=== PATIENT | male | born 1965 | race Asian ===

== ENCOUNTER 2017-11-04 11:56 | Emergency (ER) | payer OTHER ==
[2017-11-04 12:39] LABS: Basophils % (Auto) 0.2 % (0.0-1.8); Eosinophils # (Auto) 0.1 K/mm3 (0.0-0.4); Eosinophils % (Auto) 0.7 % (0.0-4.3); Hematocrit 44.7 % (35.5-45.6); Hemoglobin 14.6 gm/dl (11.8-15.2); Lymphocytes # (Auto) 1.5 K/mm3 (1.2-5.4); Lymphocytes % (Auto) 13.7 % (13.4-35.0); Mean Corpuscular HGB Conc 33 % (32-34); Mean Corpuscular Hemoglobin 31 pg (28-32); Mean Corpuscular Volume 94 fl (84-94); Monocytes # (Auto) 0.6 K/mm3 (0.0-0.8); Monocytes % (Auto) 5.3 % (0.0-7.3); Platelet Count 265 K/mm3 (140-440); Red Blood Count 4.78 M/mm3 (3.65-5.03); Red Cell Distribution Width 13.1 % (13.2-15.2)
[2017-11-04 12:59] LABS: Alanine Aminotransferase 27 units/L (7-56); Albumin 4.2 g/dL (3.9-5); BUN/Creatinine Ratio 24; Blood Urea Nitrogen 17 mg/dL (9-20); Calcium 8.9 mg/dL (8.4-10.2); Hemolysis Index 11
[2017-11-04 16:18] LABS: Bilirubin,Urine NEG (Negative); Blood,Urine NEG (Negative); Color,Urine Yellow (Yellow); Nitrite,Urine NEG (Negative); Protein,Urine <15 mg/dL mg/dL (Negative); Urobilinogen,Urine < 2.0 mg/dL (<2.0); WBC,Urine < 1.0 /HPF (0.0-6.0)
[2017-11-04] MEDS ORDERED: ZOFRAN IV ONE ×2 (17:56→19:20)
[2017-11-04] MEDS ORDERED: MORPHINE IV ONE ×2 (17:56→19:19)
[2017-11-04] MEDS ORDERED: MORPHINE IM ONE (19:21)
[2017-11-04] MEDS ORDERED: ZOFRAN IM ONE (19:22)
[2017-11-04] MEDS ORDERED: ZOFRAN ODT PO ONE (20:07)
[2017-11-04] MEDS ORDERED: CATAPRES PO ONE (21:01)
--- NOTE | 2017-11-04 21:05 | Emergency Department Report ---
HPI - General Chief Complaint: Abdominal Pain Time Seen by Provider: 11/04/17 17:20 - HPI HPI: The patient is a 52-year-old male presents for evaluation of abdominal pain. The patient reports epigastric abdominal pain since 10:30 AM this morning, 6 hours prior to my evaluation, constant, cramping in quality, exacerbated with retching. He also has experienced associated nausea without vomiting and loose watery stools. The patient denies fever, chills, night sweats, chest pain, dyspnea, hematemesis, syncope, blood in the stool, dark tarry stool, dysuria, hematuria, flank pain, genital discharge. ED Past Medical Hx - Social History Smoking Status: Never Smoker Substance Use Type: None - Medications Home Medications: Home Medications Medication Instructions Recorded Confirmed Last Taken Type HYDROcodone/APAP 5-325 [[place] 1 each PO Q6HR PRN #20 tablet 11/04/17 Unknown Rx 5/325] Ondansetron [Zofran Odt] 4 mg PO Q8HR #20 tab.rapdis 11/04/17 Unknown Rx Pantoprazole [Protonix] 40 mg PO QDAY #20 tablet 11/04/17 Unknown Rx metFORMIN [Glucophage] 500 mg PO QDAY #30 tab 11/04/17 Unknown Rx ED Review of Systems ROS: Stated complaint: ABDOMINAL PAIN Other details as noted in HPI Constitutional: denies: fever ENT: denies: throat or neck pain Respiratory: denies: cough, shortness of breath Cardiovascular: denies: chest pain Endocrine: denies unexplained weight loss or gain Gastrointestinal: reports abdominal pain, nausea, diarrhea Genitourinary: denies: dysuria Musculoskeletal: denies: leg swelling Skin: denies: rash Neurological: denies: headache Hematological/Lymphatic: denies: easy bleeding or easy bruising Psych: denies sadness or hopelessness Physical Exam - Physical Exam Vital Signs: Vital Signs 11/04/17 11:59 Temperature 98.1 F Pulse Rate 79 Respiratory 22 Rate Blood Pressure 143/110 O2 Sat by Pulse 98 Oximetry Physical Exam: General: well-nourished, well-developed, no acute distress Head: Normocephalic, atraumatic Eyes: normal sclera ENT: Mucous membranes are pale and dry Neck: No neck stiffness, no cervical adenopathy Respiratory: Breath sounds equal bilaterally, no wheezing, rales, or rhonchi Cardio: S1 and S2 present, no murmurs, rubs, gallops, capillary refill is delayed Abdomen: Normoactive bowel sounds, soft abdomen, epigastric tenderness to palpation present, no rigidity, no guarding or rebound tenderness, no pain at McBurney's point, Liu sign negative Musc: No pitting edema Skin: No rash Neuro: no facial drooping, normal speech Psych: Normal affect ED Course Vital Signs 11/04/17 11:59 Temperature 98.1 F Pulse Rate 79 Respiratory 22 Rate Blood Pressure 143/110 O2 Sat by Pulse 98 Oximetry ED Medical Decision Making - Lab Data Result diagrams: 11/04/17 12:35 11/04/17 12:35 - Medical Decision Making The patient was seen and examined by myself. The patient is placed on a nurse monitoring and continuous pulse ox. On initial evaluation, the patient was found to be in no distress. Evaluation orders are placed. The patient is given IM morphine and a GI cocktail for his pain. Lab results exhibited WBC of 11, elevated glucose greater than 300, and elevated urine specific gravity, and otherwise labs were reassuring including normal hemoglobin, hematocrit, renal function, LFTs, lipase, bicarbonate, and anion gap. As the patient has no history of elevated glucose levels, findings are concerning for new diagnosis of diabetes type 2. The patient was reevaluated and reported that their symptoms were markedly improved. On reexamination the patient has no tenderness in the abdomen remained soft without guarding, rigidity, or rebound tenderness, nonacute abdomen. Evaluation findings are suggestive of gastritis versus ulcer versus gastroparesis. The patient is stable for discharge with outpatient follow-up. The patient is given follow-up and return instructions. The patient expressed understanding and agreed with the plan. The patient is discharged in stable condition. Critical care attestation.: If time is entered above; I have spent that time in minutes in the direct care of this critically ill patient, excluding procedure time. ED Disposition Clinical Impression: Acute hyperglycemia, Hypertensive urgency, Abdominal pain, acute, epigastric, Diabetes mellitus type 2 in nonobese, Dehydration Disposition: -01 TO HOME OR SELFCARE Is pt being admited?: No Does the pt Need Aspirin: No Condition: Stable Instructions: Diabetes Mellitus Type 2 in Adults (ED), Hypertension (ED), Abdominal Pain (ED), Peptic Ulcer (ED), Gastritis (ED), Diet for Ulcers and Gastritis (ED), Acute Nausea and Vomiting (ED) Prescriptions: HYDROcodone/APAP 5-325 [[place] 5/325] 1 each PO Q6HR PRN #20 tablet PRN Reason: Pain metFORMIN [Glucophage] 500 mg PO QDAY #30 tab Ondansetron [Zofran Odt] 4 mg PO Q8HR #20 tab.rapdis Pantoprazole [Protonix] 40 mg PO QDAY #20 tablet Referrals: PRIMARY MD RALPH [Primary Care Provider] - 3-5 Days [facility] [Provider Group] - 3-5 Days VASHTI CHRISTIE MD [Staff Physician] - 3-5 Days Forms: Work/School Release Form(ED) Time of Disposition: 21:05
[2017-11-04] MEDS ORDERED: PEPCID PO ONE (22:12)
[2017-11-04] MEDS ORDERED: LIDOCAINE VISCOUS 2% PO ONE (22:12)
[2017-11-04] MEDS ORDERED: ALUM-MAG HYDROX-SIMETH 200-200-20MG/5ML PO ONE (22:12)
[2017-11-04 22:34] VITALS: BP 134/87
== END 2017-11-04 22:40 | disposition home or self-care (01) ==
LOC: ED 11:56
DX: I16.0 Hypertensive urgency (principal); E11.65 Type 2 diabetes mellitus with hyperglycemia; E86.0 Dehydration
CPT/HCPCS: 36415; 80053; 81001; 82962; 83690; 85025; 99284; J2270; J2405; J1815; Q0162

== ENCOUNTER 2018-05-12 18:09 | Emergency (ER) | payer OTHER ==
[2018-05-12 19:20] LABS: Hematocrit 42.4 % (35.5-45.6); Hemoglobin 14.8 gm/dl (11.8-15.2); Mean Corpuscular HGB Conc 35 % (32-34); Mean Corpuscular Hemoglobin 32 pg (28-32); Mean Corpuscular Volume 92 fl (84-94); Platelet Count 236 K/mm3 (140-440); Red Blood Count 4.64 M/mm3 (3.65-5.03)
[2018-05-12 19:33] LABS: BUN/Creatinine Ratio 16; Blood Urea Nitrogen 11 mg/dL (9-20); Calcium 9.1 mg/dL (8.4-10.2); Hemolysis Index 2
--- NOTE | 2018-05-12 19:41 | Emergency Department Report ---
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 Patient felt weak and dizzy and almost passed out. He fell forward but was able to catch himself. Patient has a history of tid-qfsnvbw-[id number] diabetes and thought that his sugar may have been low so he drinks some Coca-Cola. Blood sugar in triage was 108. He denies hitting his head or any loss of consciousness. He denies any fever, chest pain, shortness of breath, blurry vision, slurred speech or any other neurological deficits. He has a primary care physician in [place], Dr. Baker. No Recent travel or sick contacts at home. ED Past Medical Hx - Past Medical History Hx Diabetes: Yes Additional medical history: glaucoma - Surgical History Past Surgical History?: No - Social History Smoking Status: Never Smoker Substance Use Type: None - Medications Home Medications: Home Medications Medication Instructions Recorded Confirmed Last Taken Type HYDROcodone/APAP 5-325 [[place] 1 each PO Q6HR PRN #20 tablet 11/04/17 Unknown Rx 5/325] Ondansetron [Zofran Odt] 4 mg PO Q8HR #20 tab.rapdis 11/04/17 Unknown Rx Pantoprazole [Protonix] 40 mg PO QDAY #20 tablet 11/04/17 Unknown Rx metFORMIN [Glucophage] 500 mg PO QDAY #30 tab 11/04/17 Unknown Rx ED Review of Systems ROS: Stated complaint: FELL/SUGAR LOW Other details as noted in HPI Comment: All other systems reviewed and negative Constitutional: denies: chills, fever Eyes: denies: eye pain, eye discharge, vision change ENT: denies: ear pain, throat pain Respiratory: denies: cough, shortness of breath, wheezing Gastrointestinal: denies: abdominal pain, nausea, diarrhea Genitourinary: denies: urgency, dysuria Musculoskeletal: denies: back pain, joint swelling, arthralgia Skin: denies: rash, lesions Neurological: other (dizziness, near syncope) Physical Exam - Physical Exam Vital Signs: Vital Signs 05/12/18 05/12/18 18:29 19:16 Temperature 98.1 F Pulse Rate 69 71 Respiratory 16 10 L Rate Blood Pressure 133/89 161/99 O2 Sat by Pulse 97 100 Oximetry Physical Exam: GENERAL: The patient is well-developed well-nourished. HENT: Normocephalic. Atraumatic. Patient has moist mucous membranes. EYES: Extraocular motions are intact. Pupils equal reactive to light bilaterally. No nystagmus. NECK: Supple. Trachea is midline. CHEST/LUNGS: Clear to auscultation. There is no respiratory distress noted. HEART/CARDIOVASCULAR: Regular. There is no tachycardia. There is no murmur. ABDOMEN: Abdomen is soft, nontender. Patient has normal bowel sounds. There is no abdominal distention. SKIN: Skin is warm and dry. NEURO: The patient is awake, alert, and oriented. The patient is cooperative. The patient has no focal neurologic deficits. The patient has normal speech and gait. Cranial nerves II through XII grossly intact. No pronator drift. No dysmetria. MUSCULOSKELETAL: There is no tenderness or deformity. There is no limitation range of motion. There is no evidence of acute injury. ED Course Vital Signs 05/12/18 05/12/18 18:29 19:16 Temperature 98.1 F Pulse Rate 69 71 Respiratory 16 10 L Rate Blood Pressure 133/89 161/99 O2 Sat by Pulse 97 100 Oximetry ED Medical Decision Making - Lab Data Result diagrams: 05/12/18 18:47 05/12/18 18:47 - EKG Data -: EKG Interpreted by Ma EKG shows normal: sinus rhythm, axis, intervals, QRS complexes, ST-T waves Rate: normal - EKG Data When compared to previous EKG there are: previous EKG unavailable Interpretation: normal EKG - Medical Decision Making Patient presents with some nonspecific dizziness and/or generalized weakness and a near syncopal episode while working 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 On physical exam the patient has no focal, motor or sensory deficits and his cranial nerves are intact. Heart and lung sounds are normal auscultation. EKG does not show any signs of ST elevation [place] or dysrhythmia. His labs have been unremarkable including no signs of infection, no electrolyte abnormalities, normal blood sugar in this diabetic patient, normal thyroid function and a negative troponin. His vital signs were stable throughout his ED course including being afebrile. He does have some level of elevated blood pressure readings and possibly some possible orthostatics as his blood pressure went up as he went from laying, sitting and then standing. However he was mandatory throughout the emergency department and did not have any feelings of instability. It is possible that the patient did have some low blood sugar as his Accu-Chek in triage was about 100 after the patient drank some soda. His was eventually bedside and says that he is on 2 different blood sugar medications but sometimes will skip lunch or skip meals. Since the patient is awake and alert without any deficits, and has no complaint of any headache, I did not feel that CT imaging of the head was necessary at this time. We discussed eating a normal amount of meals but continuing his diabetes medications. He has been instructed to follow-up with the primary care physician in the next few days but to return to the emergency Department with any worsening of symptoms or any acute distress. He understands and agrees to plan. - Differential Diagnosis dysrhythmia, TIA, hypoglycemia, vasovagal, orthostatic hypotension Critical Care Time: No Critical care attestation.: If time is entered above; I have spent that time in minutes in the direct care of this critically ill patient, excluding procedure time. ED Disposition Clinical Impression: Dizziness, Near syncope, Elevated blood pressure reading Disposition: DC-01 TO HOME OR SELFCARE Is pt being admited?: No Condition: Stable Instructions: Near Syncope (ED), Lightheadedness (ED), Dizziness (ED) Additional Instructions: Please follow-up with your primary care physician in the next few days. Return to the emergency Department with any worsening of your symptoms or any acute distress. Try and stay away from foods that are high in salt and caffeinated products to help with your blood pressure. Keep a blood pressure log. Continue taking her diabetes medications. However you need to make sure that you do not skip meals or else you may end up with low blood sugar. Referrals: PRIMARY CARE, [Referring] - [facility] Time of Disposition: 20:47
[2018-05-12 21:05] VITALS: BP 146/92
== END 2018-05-12 21:08 | disposition home or self-care (01) ==
LOC: ED 18:09
DX: E11.65 Type 2 diabetes mellitus with hyperglycemia (principal)
CPT/HCPCS: 36415; 80048; 84443; 84484; 85027; 93005; 93010; 99283

== ENCOUNTER 2019-02-04 14:24 | Emergency (ER) | payer OTHER ==
[2019-02-04 15:16] VITALS: BP 142/87
--- NOTE | 2019-02-04 15:19 | Emergency Department Report ---
Blank Doc - Documentation Documentation: 53 y o male presents to ed for itching and swelling and pain on bilat hands x today states he used a detergent at work and sx started shortly after that. no airway compromise acc eval
--- NOTE | 2019-02-04 15:53 | Emergency Department Report ---
ED General Adult HPI - General Chief complaint: Allergic Reaction Stated complaint: CHEMICAL REACTION Time Seen by Provider: 02/04/19 15:14 Source: patient Mode of arrival: Ambulatory Limitations: No Limitations - History of Present Illness Initial comments: Patient is a 53-year-old mellitus emergency with complaints of spelled chemical on his hands at work. Patient is complaining of burning sensation to his rt hand and itching. Patient states it happened this morning at work and he immediately washed his hands thoroughly. Patient brought the chemical with him. 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 Chemical recommendation on the back of the doctor recommended, skin exposure takes place only requires thorough cleaning. She is complaining of redness to his right hand. -: Sudden Location: upper extremity Radiation: non-radiation Severity scale (0 -10): 4 Quality: burning Consistency: constant Improves with: cold therapy, rest, other (putting hand in cold water) Worsens with: movement Associated Symptoms: denies: confusion, chest pain, cough, diaphoresis, fever/chills, headaches, loss of appetite, malaise, nausea/vomiting, rash, seizure, shortness of breath, syncope, weakness Treatments Prior to Arrival: none - Related Data Previous Rx's Medication Instructions Recorded Last Taken Type HYDROcodone/APAP 5-325 [[place] 1 each PO Q6HR PRN #20 tablet 11/04/17 Unknown Rx 5/325] Ondansetron [Zofran Odt] 4 mg PO Q8HR #20 tab.rapdis 11/04/17 Unknown Rx Pantoprazole [Protonix] 40 mg PO QDAY #20 tablet 11/04/17 Unknown Rx metFORMIN [Glucophage] 500 mg PO QDAY #30 tab 11/04/17 Unknown Rx methylPREDNISolone [Medrol] 4 mg PO DAILY 6 Days #1 tab.ds.pk 02/04/19 Unknown Rx Allergies Allergy/AdvReac Type Severity Reaction Status Date / Time No Known Allergies Allergy Verified 02/04/19 14:35 ED Review of Systems ROS: Stated complaint: CHEMICAL REACTION Other details as noted in HPI ED Past Medical Hx - Past Medical History Previous Medical History?: Yes Hx Diabetes: Yes Additional medical history: glaucoma - Surgical History Past Surgical History?: No - Social History Smoking Status: Never Smoker Substance Use Type: None - Medications Home Medications: Home Medications Medication Instructions Recorded Confirmed Last Taken Type HYDROcodone/APAP 5-325 [[place] 1 each PO Q6HR PRN #20 tablet 11/04/17 Unknown Rx 5/325] Ondansetron [Zofran Odt] 4 mg PO Q8HR #20 tab.rapdis 11/04/17 Unknown Rx Pantoprazole [Protonix] 40 mg PO QDAY #20 tablet 11/04/17 Unknown Rx metFORMIN [Glucophage] 500 mg PO QDAY #30 tab 11/04/17 Unknown Rx methylPREDNISolone [Medrol] 4 mg PO DAILY 6 Days #1 tab.ds.pk 02/04/19 Unknown Rx ED Physical Exam - General Limitations: No Limitations General appearance: alert, in no apparent distress - Head Head exam: Present: atraumatic, normocephalic - Eye Eye exam: Present: normal appearance - ENT ENT exam: Present: mucous membranes moist - Neck Neck exam: Present: normal inspection - Respiratory Respiratory exam: Present: normal lung sounds bilaterally. Absent: respiratory distress - Cardiovascular Cardiovascular Exam: Present: regular rate, normal rhythm. Absent: systolic murmur, diastolic murmur, rubs, gallop - GI/Abdominal GI/Abdominal exam: Present: soft, normal bowel sounds - Rectal Rectal exam: Present: deferred - Extremities Exam Extremities exam: Present: normal inspection - Back Exam Back exam: Present: normal inspection - Neurological Exam Neurological exam: Present: alert, oriented X3 - Psychiatric Psychiatric exam: Present: normal affect, normal mood - Skin Skin exam: Present: warm, dry, intact, normal color (except for right hand), erythema (2 right hand. No rash noted. No urticaria noted.), other (right hand exam: Redness noted to the palmar aspect of the hand. No rash noted. No bustillo noted. No skin breakdown noted. Mild contact dermatitis noted). Absent: rash, urticaria, vesicles ED Course Vital Signs 02/04/19 15:14 Temperature 98.1 F Pulse Rate 67 Respiratory 16 Rate Blood Pressure 142/87 O2 Sat by Pulse 99 Oximetry ED Medical Decision Making - Medical Decision Making Patient is a 53-year-old male up since emergency room with complaints of a chemical burn to his right hand. Findings consistent with contact dermatitis. Product label reviewed. Product label recommends thorough cleaning of the skin when skin contact occurs. Patient will be discharged home. Patient stable for discharge. Patient was given one day off work to rest. Patient will be given a Medrol Dosepak. Patient given discharge instructions. Patient given medicat ion instructions. Patient voiced understanding of discharge instructions. - Differential Diagnosis hand pain. Hand itching. Contact dermatitis. Chemical burn Critical care attestation.: If time is entered above; I have spent that time in minutes in the direct care of this critically ill patient, excluding procedure time. ED Disposition Clinical Impression: Contact dermatitis Qualifiers: Contact dermatitis type: irritant Contact dermatitis trigger: detergents Qualified Code(s): L24.0 - Irritant contact dermatitis due to detergents Disposition: DC-01 TO HOME OR SELFCARE Is pt being admited?: No Does the pt Need Aspirin: No Condition: Stable Instructions: Contact Dermatitis (ED) Additional Instructions: Patient to follow up with primary care in 2-3 days. Patient take one day off work. Patient to take meds as directed. Patient to increase water. Patient to rest. Patient to keep hand clean and dry Prescriptions: methylPREDNISolone [Medrol] 4 mg PO DAILY 6 Days #1 tab.ds.pk Time of Disposition: 15:55
[2019-02-04] MEDS ORDERED: SOLU-Medrol IM ONE (15:56)
== END 2019-02-04 16:18 | disposition home or self-care (01) ==
LOC: ED 14:24
DX: L24.0 Irritant contact dermatitis due to detergents (principal); E11.9 Type 2 diabetes mellitus without complications
CPT/HCPCS: 96372; 99282; J2930

== ENCOUNTER 2021-04-16 17:25 | Emergency (ER) | payer OTHER ==
[2021-04-16 19:57] VITALS: BP 165/93
[2021-04-16 20:49] LABS: Basophils % (Auto) 0.4 % (0.0-1.8); Eosinophils % (Auto) 0.6 % (0.0-4.3); Hematocrit 43.5 % (35.5-45.6); Hemoglobin 14.8 gm/dl (11.8-15.2); Lymphocytes # (Auto) 2.9 K/mm3 (1.2-5.4); Lymphocytes % (Auto) 35.7 % (13.4-35.0); Mean Corpuscular HGB Conc 34 % (32-34); Mean Corpuscular Volume 94 fl (84-94); Monocytes # (Auto) 0.7 K/mm3 (0.0-0.8); Monocytes % (Auto) 8.5 % (0.0-7.3); Platelet Count 293 K/mm3 (140-440); Red Blood Count 4.64 M/mm3 (3.65-5.03); Red Cell Distribution Width 14.2 % (13.2-15.2)
[2021-04-16 21:11] LABS: Alanine Aminotransferase 36 units/L (7-56); Albumin 4.2 g/dL (3.9-5); Blood Urea Nitrogen 11 mg/dL (9-20); Calcium 9.4 mg/dL (8.4-10.2); Hemolysis Index 9
[2021-04-16 21:12] LABS: BUN/Creatinine Ratio 16
--- NOTE | 2021-04-16 21:42 | Emergency Department Report ---
ED General Adult HPI - General Chief complaint: Sore Throat Stated complaint: THROAT IRRIATION Time Seen by Provider: 04/16/21 20:28 Source: patient, family Mode of arrival: Ambulatory Limitations: No Limitations - History of Present Illness Initial comments: Patient is a 55-year-old male who presents emergency room with complaints of difficulty swallowing pills and solids for approximately a week. He states that he went to his primary care doctor and was prescribed nystatin. He states he continues to have throat discomfort and states that his throat feels dry. He states he also has white stuff on his tongue. He states in order to take his medication he has to empty the capsule because he has difficulty swallowing the pill. He states he is able to swallow liquids without difficulty. He denies any vomiting, regurgitation, hemoptysis. He has not seen a GI doctor or had endoscopy. Past medical history of diabetes and glaucoma. No allergies to medications. - Related Data Previous Rx's Medication Instructions Recorded Last Taken Type HYDROcodone/APAP 5-325 [[place] 1 each PO Q6HR PRN #20 tablet 11/04/17 Unknown Rx 5/325] Ondansetron [Zofran Odt] 4 mg PO Q8HR #20 tab.rapdis 11/04/17 Unknown Rx Pantoprazole [Protonix] 40 mg PO QDAY #20 tablet 11/04/17 Unknown Rx metFORMIN [Glucophage] 500 mg PO QDAY #30 tab 11/04/17 Unknown Rx methylPREDNISolone [Medrol] 4 mg PO DAILY 6 Days #1 tab.ds.pk 02/04/19 Unknown Rx Clotrimazole [Mycelex] 10 mg MM 5XD 7 Days #35 jasper 04/16/21 Unknown Rx Lidocaine Viscous 2% 15 ml MM TID PRN #1 bottle 04/16/21 Unknown Rx Allergies Allergy/AdvReac Type Severity Reaction Status Date / Time No Known Allergies Allergy Verified 02/04/19 14:35 ED Review of Systems ROS: Stated complaint: THROAT IRRIATION Other details as noted in HPI Comment: All other systems reviewed and negative ED Past Medical Hx - Past Medical History Previous Medical History?: Yes Hx Diabetes: Yes Additional medical history: glaucoma - Surgical History Past Surgical History?: No - Social History Smoking Status: Never Smoker Substance Use Type: None - Medications Home Medications: Home Medications Medication Instructions Recorded Confirmed Last Taken Type HYDROcodone/APAP 5-325 [[place] 1 each PO Q6HR PRN #20 tablet 11/04/17 Unknown Rx 5/325] Ondansetron [Zofran Odt] 4 mg PO Q8HR #20 tab.rapdis 11/04/17 Unknown Rx Pantoprazole [Protonix] 40 mg PO QDAY #20 tablet 11/04/17 Unknown Rx metFORMIN [Glucophage] 500 mg PO QDAY #30 tab 11/04/17 Unknown Rx methylPREDNISolone [Medrol] 4 mg PO DAILY 6 Days #1 tab.ds.pk 02/04/19 Unknown Rx Clotrimazole [Mycelex] 10 mg MM 5XD 7 Days #35 jasper 04/16/21 Unknown Rx Lidocaine Viscous 2% 15 ml MM TID PRN #1 bottle 04/16/21 Unknown Rx ED Physical Exam - General Limitations: No Limitations General appearance: alert, in no apparent distress - Head Head exam: Present: atraumatic, normocephalic - ENT ENT exam: Present: mucous membranes moist, other (White plaque present to the tongue) - Neck Neck exam: Present: normal inspection, full ROM. Absent: tenderness, meningismus, lymphadenopathy, thyromegaly - Respiratory Respiratory exam: Present: normal lung sounds bilaterally. Absent: respiratory distress, wheezes, rales, rhonchi, stridor, chest wall tenderness, accessory muscle use, decreased breath sounds, prolonged expiratory - Cardiovascular Cardiovascular Exam: Present: regular rate, normal rhythm, normal heart sounds. Absent: systolic murmur, diastolic murmur, rubs, gallop - Neurological Exam Neurological exam: Present: alert, oriented X3 - Psychiatric Psychiatric exam: Present: normal affect, normal mood - Skin Skin exam: Present: warm, dry, intact ED Course Vital Signs 04/16/21 19:53 Temperature 97.8 F Pulse Rate 71 Respiratory 18 Rate Blood Pressure 165/93 O2 Sat by Pulse 98 Oximetry ED Medical Decision Making - Lab Data Result diagrams: 04/16/21 20:37 04/16/21 20:37 Lab Results 04/16/21 04/16/21 04/16/21 Range/Units 20:37 20:37 20:37 WBC 8.2 (4.5-11.0) K/mm3 RBC 4.64 (3.65-5.03) M/mm3 Hgb 14.8 (11.8-15.2) gm/dl Hct 43.5 (35.5-45.6) % MCV 94 (84-94) fl MCH 32 (28-32) pg MCHC 34 (32-34) % RDW 14.2 (13.2-15.2) % Plt Count 293 (140-440) K/mm3 Lymph % (Auto) 35.7 H (13.4-35.0) % [place] % (Auto) 8.5 H (0.0-7.3) % Eos % (Auto) 0.6 (0.0-4.3) % Baso % (Auto) 0.4 (0.0-1.8) % Lymph # (Auto) 2.9 (1.2-5.4) K/mm3 [place] # (Auto) 0.7 (0.0-0.8) K/mm3 Eos # (Auto) 0.0 (0.0-0.4) K/mm3 Baso # (Auto) 0.0 (0.0-0.1) K/mm3 Seg Neutrophils % 54.8 (40.0-70.0) % Seg Neutrophils # 4.5 (1.8-7.7) K/mm3 Sodium 134 L (137-145) mmol/L Potassium 4.6 (3.6-5.0) mmol/L Chloride 99.3 (98-107) mmol/L Carbon Dioxide 25 (22-30) mmol/L Anion Gap 14 mmol/L BUN 11 (9-20) mg/dL Creatinine 0.7 L (0.8-1.3) mg/dL Estimated GFR > 60 ml/min BUN/Creatinine Ratio 16 % Glucose 220 H (75-100) mg/dL Calcium 9.4 (8.4-10.2) mg/dL Total Bilirubin 1.60 H (0.1-1.2) mg/dL AST 19 (5-40) units/L ALT 36 (7-56) units/L Alkaline Phosphatase 106 (35-129) units/L Total Protein 6.9 (6.3-8.2) g/dL Albumin 4.2 (3.9-5) g/dL Albumin/Globulin Ratio 1.6 % TSH 0.863 (0.270-4.200) mlU/mL - Radiology Data Radiology results: report reviewed Ordering Physician: MARNIE ESCOBAR Date of Service: 04/16/21 Procedure(s): CT neck w con Accession Number(s): [id number] cc: MARNIE ESCOBAR . CT neck w con INDICATION / CLINICAL INFORMATION: 55 years Male; Dysphagia, Difficulty swallowing.. TECHNIQUE: Contiguous thin cut axial images obtained through the neck following IV contrast. Sagittal and coronal reconstructions performed by the technologist. All CT scans at this location are performed using CT dose reduction for ALARA by means of automated exposure control. COMPARISON: None available. FINDINGS: MUCOSAL SPACE: The nasopharynx, oropharynx and vallecula, oral cavity and floor of mouth, hypopharynx, and larynx are grossly normal. Parapharyngeal and retropharyngeal spaces are grossly normal. LYMPH NODES: No significant adenopathy appreciated. SALIVARY GLANDS: Parotid, submandibular, and visualized sublingual glands are within normal limits. THYROID GLAND: Unremarkable. PARANASAL SINUSES: Mild mucosal thickening in the ethmoids and maxillary antra. SPINE: No significant abnormality of the cervical spine appreciated. VASCULAR STRUCTURES: Vascular structures are grossly normal in appearance. ADDITIONAL FINDINGS: Surrounding soft tissues are otherwise grossly normal. IMPRESSION: 1. No definitive cause for patient's symptomatology appreciated. Signer Name: Malcolm Murphy MD, III Signed: 04/16/2021 10:24 PM Workstation Name: [id number] Transcribed By: Dictated By: Malcolm Murphy MD Electronically Authenticated By: Malcolm Murphy MD Signed Date/Time: 04/16/212223 DD/ 20 TD/TT: Print Cancel - Medical Decision Making Patient is a 55-year-old male who presents emergency room with complaints of difficulty swallowing pills and solids for approximately a week. He states that he went to his primary care doctor and was prescribed nystatin. He states he continues to have throat discomfort and states that his throat feels dry. He states he also has white stuff on his tongue. He states in order to take his medication he has to empty the capsule because he has difficulty swallowing the pill. He states he is able to swallow liquids without difficulty. He denies any vomiting, regurgitation, hemoptysis. He has not seen a GI doctor or had endoscopy. Past medical history of diabetes and glaucoma. No allergies to medications. Vitals are stable. Labs are stable. CT neck with contrast 1. No definitive cause for patient's symptomatology appreciated. Patient is able to tolerate his secretions and liquids that any difficulty. He states he mostly has difficulty with swallowing pills. Examination of the mouth/tongue shows mild thrush. Patient will be referred to GI for further evaluation. Discuss strict return precautions with patient. Patient given prescription for medications. Advised patientPlease use medication as prescribed. Follow-up with a primary care doctor. Follow-up with a GI doctor. Return to emergency room for new or worsening symptoms. Critical care attestation.: If time is entered above; I have spent that time in minutes in the direct care of this critically ill patient, excluding procedure time. ED Disposition Clinical Impression: Dysphagia Qualifiers: Dysphagia type: unspecified Qualified Code(s): R13.10 - Dysphagia, unspecified Disposition: - TO HOME OR SELFCARE Is pt being admited?: No Does the pt Need Aspirin: No Condition: Stable Instructions: Dysphagia Additional Instructions: Please use medication as prescribed. Follow-up with a primary care doctor. Follow-up with a GI doctor. Return to emergency room for new or worsening symptoms. Prescriptions: Lidocaine Viscous 2% 15 ml MM TID PRN #1 bottle PRN Reason: sore throat Clotrimazole [Mycelex] 10 mg MM 5XD 7 Days #35 jasper Referrals: [facility] [Provider Group] - 2-3 Days PRIMARY CARE, [Primary Care Provider] - 2-3 Days Time of Disposition: 22:30 Print Language: DIVEHI
--- NOTE | 2021-04-16 22:28 | Cat Scan Report ---
. CT neck w con INDICATION / CLINICAL INFORMATION: 55 years Male; Dysphagia, Difficulty swallowing.. TECHNIQUE: Contiguous thin cut axial images obtained through the neck following IV contrast. Sagittal and alejandra l reconstructions performed by the technologist. All CT scans at this location are performed using CT dose reduction for ALARA by means of automated exposure control. COMPARISON: None available. FINDINGS: MUCOSAL SPACE: The nasopharynx, oropharynx and vallecula, oral cavity and floor of mouth, hypopharynx , and larynx are grossly normal. Parapharyngeal and retropharyngeal spaces are grossly normal. LYMPH NODES: No significant adenopathy appreciated. SALIVARY GLANDS: Parotid, submandibular, and visualized sublingual glands are within normal limits. THYROID GLAND: Unremarkable. PARANASAL SINUSES: Mild mucosal thickening in the ethmoids and maxillary antra. SPINE: No significant abnormality of the cervical spine appreciated. VASCULAR STRUCTURES: Vascular structures are grossly normal in appearance. ADDITIONAL FINDINGS: Surrounding soft tissues are otherwise grossly normal. IMPRESSION: 1. No definitive cause for patient's symptomatology appreciated. Signer Name: Malcolm Murphy MD, III Signed: 04/16/2021 10:24 PM Workstation Name: [id number]
== END 2021-04-16 22:45 | disposition home or self-care (01) ==
LOC: ED 17:25
DX: R13.10 Dysphagia, unspecified (principal); E11.9 Type 2 diabetes mellitus without complications; Z79.84 Long term (current) use of oral hypoglycemic drugs; Z79.899 Other long term (current) drug therapy
CPT/HCPCS: 36415; 70491; 80053; 84443; 85025; 99284; Q9967

== ENCOUNTER 2021-04-17 15:25 | Emergency (ER) | payer OTHER ==
[2021-04-17 16:11] VITALS: BP 141/78
--- NOTE | 2021-04-17 17:20 | Emergency Department Report ---
ED General Adult HPI - General Chief complaint: Sore Throat Stated complaint: SORE THROAT Time Seen by Provider: 04/17/21 17:00 Source: patient Mode of arrival: Ambulatory Limitations: No Limitations - History of Present Illness Initial comments: 55-year-old male presents emergency department after being seen on yesterday for sore throat where he underwent a CT scan and laboratory findings which showed no urgent or emergent reasons for his condition it is believed to be secondary to a fungal/yeast origin as he was prescribed nystatin by his primary care and I and Mycelex and lidocaine on yesterday however he has not yet filled the medications provided for him on yesterday and reports having a burning sensation to his left-sided throat after eating a cup of soup at home that was made for him by his . Reports no fever, chills, sweats, hemoptysis symptoms and hematochezia, no nausea, no vomiting, no abdominal pain, no change in voice, no no drooling. Reports having had some swelling trouble swallowing pills over the past 2 to 3 weeks and continues to be a problem today he can still consuming liquids obviously as he has been able to keep down entire cup of soup -: week(s) (2) Radiation: non-radiation Severity scale (0 -10): 5 Quality: burning Worsens with: other (Thanks this condition worsen after receiving a CT scan on yesterday) Associated Symptoms: denies other symptoms. denies: confusion, chest pain, cough, diaphoresis, fever/chills, headaches, loss of appetite, malaise, shortness of breath, syncope, weakness Treatments Prior to Arrival: none - Related Data Previous Rx's Medication Instructions Recorded Last Taken Type HYDROcodone/APAP 5-325 [[place] 1 each PO Q6HR PRN #20 tablet 11/04/17 Unknown Rx 5/325] Ondansetron [Zofran Odt] 4 mg PO Q8HR #20 tab.rapdis 11/04/17 Unknown Rx Pantoprazole [Protonix] 40 mg PO QDAY #20 tablet 11/04/17 Unknown Rx metFORMIN [Glucophage] 500 mg PO QDAY #30 tab 11/04/17 Unknown Rx methylPREDNISolone [Medrol] 4 mg PO DAILY 6 Days #1 tab.ds.pk 02/04/19 Unknown Rx Clotrimazole [Mycelex] 10 mg MM 5XD 7 Days #35 jasper 04/16/21 Unknown Rx Lidocaine Viscous 2% 15 ml MM TID PRN #1 bottle 04/16/21 Unknown Rx Sucralfate [Carafate] 1 gm PO ACHS #240 udc 04/17/21 Unknown Rx Allergies Allergy/AdvReac Type Severity Reaction Status Date / Time No Known Allergies Allergy Verified 02/04/19 14:35 ED Review of Systems ROS: Stated complaint: SORE THROAT Other details as noted in HPI Comment: All other systems reviewed and negative Constitutional: denies: chills, fever Eyes: denies: eye pain, eye discharge, vision change ENT: denies: ear pain, throat pain Respiratory: denies: cough, shortness of breath, wheezing Cardiovascular: denies: chest pain, palpitations Endocrine: no symptoms reported Gastrointestinal: denies: abdominal pain, nausea, diarrhea Genitourinary: denies: urgency, dysuria Musculoskeletal: denies: back pain, joint swelling, arthralgia Skin: denies: rash, lesions Neurological: denies: headache, weakness, paresthesias Psychiatric: denies: anxiety, depression Hematological/Lymphatic: denies: easy bleeding, easy bruising ED Past Medical Hx - Past Medical History Previous Medical History?: Yes Hx Diabetes: Yes Additional medical history: glaucoma - Surgical History Past Surgical History?: No - Social History Smoking Status: Never Smoker Substance Use Type: None - Medications Home Medications: Home Medications Medication Instructions Recorded Confirmed Last Taken Type HYDROcodone/APAP 5-325 [[place] 1 each PO Q6HR PRN #20 tablet 11/04/17 Unknown Rx 5/325] Ondansetron [Zofran Odt] 4 mg PO Q8HR #20 tab.rapdis 11/04/17 Unknown Rx Pantoprazole [Protonix] 40 mg PO QDAY #20 tablet 11/04/17 Unknown Rx metFORMIN [Glucophage] 500 mg PO QDAY #30 tab 11/04/17 Unknown Rx methylPREDNISolone [Medrol] 4 mg PO DAILY 6 Days #1 tab.ds.pk 02/04/19 Unknown Rx Clotrimazole [Mycelex] 10 mg MM 5XD 7 Days #35 jasper 04/16/21 Unknown Rx Lidocaine Viscous 2% 15 ml MM TID PRN #1 bottle 04/16/21 Unknown Rx Sucralfate [Carafate] 1 gm PO ACHS #240 c 04/17/21 Unknown Rx ED Physical Exam - General Limitations: No Limitations General appearance: alert, in no apparent distress - Head Head exam: Present: atraumatic, normocephalic - Eye Eye exam: Present: normal appearance, PERRL, EOMI Pupils: Present: normal accommodation - ENT ENT exam: Present: mucous membranes moist, other (Pharynx is clear airway patent tongue and uvula are midline. No exudate. No peritonsillar abscess or pharyngeal swelling. Poor dentition can addition with a brownish tent, erosion to most of the dentition consistent with bruxism) - Neck Neck exam: Present: normal inspection, full ROM, other. Absent: tenderness, meningismus, lymphadenopathy, thyromegaly - Respiratory Respiratory exam: Present: normal lung sounds bilaterally. Absent: respiratory distress, wheezes, rales - Cardiovascular Cardiovascular Exam: Present: regular rate, normal rhythm. Absent: systolic murmur, diastolic murmur, rubs, gallop - GI/Abdominal GI/Abdominal exam: Present: soft, normal bowel sounds - Rectal Rectal exam: Present: deferred - Extremities Exam Extremities exam: Present: normal inspection - Back Exam Back exam: Present: normal inspection. Absent: CVA tenderness (R), CVA tenderness (L) - Neurological Exam Neurological exam: Present: alert, oriented X3, CN II-XII intact - Psychiatric Psychiatric exam: Present: normal affect, normal mood - Skin Skin exam: Present: warm, dry, intact, normal color. Absent: rash ED Course Vital Signs 04/17/21 16:05 Temperature 98.4 F Pulse Rate 76 Respiratory 18 Rate Blood Pressure 141/78 [Right] O2 Sat by Pulse 98 Oximetry ED Medical Decision Making - Radiology Data Radiology results: report reviewed, image reviewed CT scan from yesterday [address] [place] [address] Cat Scan Report Signed Patient: MESERET YOUNGBLOOD MR#: [id number] : 1965 Acct:[id number] Age/Sex: 55 / M ADM Date: 04/16/21 Loc: ED Attending Dr: Ordering Physician: MARNIE ESCOBAR Date of Service: 04/16/21 Procedure(s): CT neck w con Accession Number(s): [id number] cc: MARNIE ESCOBAR . CT neck w con INDICATION / CLINICAL INFORMATION: 55 years Male; Dysphagia, Difficulty swallowing.. TECHNIQUE: Contiguous thin cut axial images obtained through the neck following IV contrast. Sagittal and coronal reconstructions performed by the technologist. All CT scans at this location are performed using CT dose reduction for ALARA by means of automated exposure control. COMPARISON: None available. FINDINGS: MUCOSAL SPACE: The nasopharynx, oropharynx and vallecula, oral cavity and floor of mouth, hypopharynx, and larynx are grossly normal. Parapharyngeal and retropharyngeal spaces are grossly normal. LYMPH NODES: No significant adenopathy appreciated. SALIVARY GLANDS: Parotid, submandibular, and visualized sublingual glands are within normal limits. THYROID GLAND: Unremarkable. PARANASAL SINUSES: Mild mucosal thickening in the ethmoids and maxillary antra. SPINE: No significant abnormality of the cervical spine appreciated. VASCULAR STRUCTURES: Vascular structures are grossly normal in appearance. ADDITIONAL FINDINGS: Surrounding soft tissues are otherwise grossly normal. IMPRESSION: 1. No definitive cause for patient's symptomatology appreciated. Signer Name: Mlacolm Murphy MD, III Signed: 04/16/2021 10:24 PM Workstation Name: [id number] Transcribed By: HR Dictated By: Malcolm Murphy MD Electronically Authenticated By: Malcolm Murphy MD Signed Date/Time: 04/16/212223 DD/ 20 TD/TT: Print Cancel - Medical Decision Making 55-year-old male presents emergency department after being seen on yesterday for sore throat where he underwent a CT scan and laboratory findings which showed no urgent or emergent reasons for his condition it is believed to be secondary to a fungal/yeast origin as he was prescribed nystatin by his primary care and I and Mycelex and lidocaine on yesterday however he has not yet filled the medications provided for him on yesterday and reports having a burning sensation to his left-sided throat after eating a cup of soup at home that was made for him by his . Patient is nontoxic with no history of immune compromising conditions. No trismus, patient is euvolemic, no airway compromise. He is able to tolerate p.o. Is unlikely peritonsillar abscess, Yuri, epiglottitis, bacterial trache itis, viral component. Acute HIV is also on the differential. At this point time we will continue with conservative care and advised patient to continue to follow-up with the food and beverage attendant so that he can obtain a EGD and further evaluation options and treatment options once more information is discovered. Critical care attestation.: If time is entered above; I have spent that time in minutes in the direct care of this critically ill patient, excluding procedure time. ED Disposition Clinical Impression: Pharyngitis, Dysphagia Disposition: TO HOME OR SELFCARE Is pt being admited?: No Does the pt Need Aspirin: No Condition: Stable Instructions: Sore Throat, [id number], Sore Throat, Dysphagia Eating Plan, Bite Size Food, Modified Barium Swallow, Laryngoscopy, Thickening Liquids for Dysphagia Diet Prescriptions: Sucralfate [Carafate] [facility] [place] Referrals: PRIMARY CARE, [Primary Care Provider] - 3-5 Days [facility] [Provider Group] - 3-5 Days
[2021-04-17] MEDS ORDERED: LIDOCAINE VISCOUS 2% 15 ML ORAL LIQD PO ONE (18:10)
[2021-04-17] MEDS ORDERED: ALUM-MAG HYDROXIDE-SIMETHICONE 200-200-20MG/5ML ORAL LIQD 30 ML PO ONE (18:10)
== END 2021-04-18 07:16 | disposition home or self-care (01) ==
LOC: ED 15:25
DX: J02.9 Acute pharyngitis, unspecified (principal); R13.10 Dysphagia, unspecified; E11.9 Type 2 diabetes mellitus without complications; Z79.899 Other long term (current) drug therapy
CPT/HCPCS: 99281

== ENCOUNTER 2021-04-23 08:01 | Outpatient (CLI) | payer OTHER ==
--- NOTE | 2021-04-23 12:28 | Fluoroscopy Report ---
MODIFIED BARIUM SWALLOW INDICATION: DYSPHAGIA PAIN IN THROAT TECHNIQUE: Swallowing was evaluated in the lateral position under direct fluoroscopy. FINDINGS: The patient was evaluated with thin liquid, puree and semisolid consistencies. Deglutition was normal. No evidence for penetration or aspiration. IMPRESSION: Unremarkable exam. Fluoroscopic time: 0.6 minutes Number of fluoroscopic images: 4 Signer Name: Eddie Marmolejo Jr, MD Signed: 04/23/2021 12:24 PM Workstation Name: [id number]
== END 2021-04-23 08:02 | disposition home or self-care (01) ==
LOC: PT 08:01
PROVIDERS: ATTEND Otolaryngology
DX: R13.10 Dysphagia, unspecified (principal)
CPT/HCPCS: 74230